=== PATIENT | male | born 1955 | race Caucasian/White ===

== ENCOUNTER 2017-01-11 12:35 | Inpatient (IN) | payer OTHER ==
[~2017-01-11] VITALS: Ht 177.8 cm; Wt 83.0 kg
[2017-01-11] MEDS ORDERED: HYDROmorphone 1 MG/ML, 1ML ONE ×3 (13:21→19:22)
[2017-01-11] MEDS ORDERED: KETOROLAC 30 MG/1 ML ONE (13:21)
[2017-01-11] MEDS ORDERED: ONDANSETRON 2MG/ML, 2ML ONE ×3 (13:21→19:56)
[2017-01-11] MEDS: HYDROmorphone 1 MG/ML, 1ML IVPush PRN ×2 (13:28→14:54)
[2017-01-11] MEDS ORDERED: KETOROLAC 30 MG/1 ML IVPush ONE (13:30)
[2017-01-11] MEDS: ONDANSETRON 2MG/ML, 2ML IVPush PRN ×2 (13:30→14:50)
[2017-01-11] MEDS ORDERED: SODIUM CHLORIDE FLUSH 10ML SYR IVF ONE (14:30)
[2017-01-11] MEDS ORDERED: TAMSULOSIN 0.4 MG CAP.ER.24H PO ONE (14:30)
[2017-01-11] MEDS ORDERED: SODIUM CHLORIDE 0.9% 1,000ML IVBOLUS ONE (14:30)
[2017-01-11] MEDS ORDERED: TAMSULOSIN 0.4 MG CAP.ER.24H ONE (14:41)
[2017-01-11] MEDS ORDERED: SODIUM CHLORIDE 0.9%, 500ML IVBOLUS ONE (15:00)
[2017-01-11] MEDS ORDERED: HYDROmorphone 1 MG/ML, 1ML IV ONE (15:00)
[2017-01-11] MEDS ORDERED: ACETAMINOPHEN 325 MG TABLET PO PRN ×2 (19:00→20:00)
[2017-01-11] MEDS ORDERED: BISACODYL 10 MG SUPP PR PRN (19:00)
[2017-01-11] MEDS ORDERED: ONDANSETRON 2MG/ML, 2ML IVPush PRN ×2 (19:00→20:00)
[2017-01-11] MEDS ORDERED: POLYETHYLENE GLYCOL 17 GM PACKET PO PRN (19:00)
[2017-01-11] MEDS: SODIUM CHLORIDE 0.9% 1,000 ML IV SCH (19:25)
[2017-01-11] MEDS ORDERED: FENTANYL PF 250 MCG/5ML ONE (19:56)
[2017-01-11] MEDS ORDERED: MIDAZOLAM 1 MG/ML, 2ML ONE (19:56)
[2017-01-11] MEDS ORDERED: PROPOFOL 10 MG/ML, 20ML ONE (19:56)
[2017-01-11] MEDS ORDERED: DEXAMETHASONE 4 MG/ML, 1ML ONE (19:56)
[2017-01-11] MEDS ORDERED: CEFAZOLIN 1,000 MG ONE (19:56)
[2017-01-11] MEDS ORDERED: HYDROmorphone 1 MG/ML, 1ML IV PRN (20:00)
[2017-01-11] MEDS ORDERED: FENTANYL PF 100 MCG/2ML IV PRN (20:00)
[2017-01-11] MEDS ORDERED: ALBUTEROL SULFATE 2.5 MG/3 ML NPPB PRN (20:00)
[2017-01-11] MEDS ORDERED: hydrALAzine 20 MG/ML, 1ML IV PRN (20:00)
[2017-01-11] MEDS ORDERED: LABETALOL 5MG/ML, 20ML IV PRN (20:00)
[2017-01-11] MEDS ORDERED: EPHEDRINE 50 MG/ML, 1ML IVPush PRN (20:00)
[2017-01-11] MEDS ORDERED: OXYcodone 5 MG/5 ML ORAL.SOL UDC PO PRN (20:00)
[2017-01-11] MEDS ORDERED: METOPROLOL 1 MG/ML, 5ML IV PRN (20:00)
[2017-01-11] MEDS ORDERED: MEPERIDINE/PF 25MG/0.5ML IVPush PRN (20:00)
[2017-01-11] MEDS ORDERED: PROMETHAZINE 25 MG/ML, 1ML IV PRN (20:00)
[2017-01-11] MEDS ORDERED: HYDROcodone/APAP 7.5-325MG/15ML UDC PO PRN (20:00)
[2017-01-11] MEDS ORDERED: MIDAZOLAM 1 MG/ML, 2ML IV PRN (20:00)
[2017-01-11] MEDS ORDERED: MEPERIDINE/PF 25MG/0.5ML ONE (21:15)
[2017-01-11 23:54] VITALS: BP 137/76
[2017-01-12] MEDS: SODIUM CHLORIDE 0.9% 1,000 ML IV SCH ×2 (01:52→11:14)
[2017-01-12 03:23] VITALS: BP 122/68
[2017-01-12 06:03] LABS: ASPARTATE AMINO TRANSFERASE 32 U/L (15-37); BLOOD UREA NITROGEN 23 mg/dL (7-18)
[2017-01-12 07:53] VITALS: BP 154/61
[2017-01-12] MEDS: morphine SULFATE 10 MG/ML, 1ML IVPush PRN ×2 (08:30→12:50)
[2017-01-12] MEDS ORDERED: SENNA/DOCUSATE TABLET PO SCH (09:00)
[2017-01-12] MEDS ORDERED: HYDR-3240 PO (12:43)
[2017-01-12 13:37] VITALS: BP 132/72
== END 2017-01-12 15:30 | disposition home or self-care (01) | DRG 694 ==
LOC: ED 16:38 → EDIP 16:39 → ED 17:17 → 4NOR 22:20 → DCLOUNGE 01-12 14:21
PROVIDERS: ADMIT Hospitalist; ATTEND Hospitalist
PROC: 0T778DZ Dilation of Left Ureter with Intraluminal Device, Via Natural or Artificial Opening Endoscopic (ICD-10-PCS; 2017-01-11)
PROC: 0TF78ZZ Fragmentation in Left Ureter, Via Natural or Artificial Opening Endoscopic (ICD-10-PCS; principal; 2017-01-11 19:00)
DX: N20.1 Calculus of ureter (principal); E44.0 Moderate protein-calorie malnutrition; R31.9 Hematuria, unspecified; Z90.49 Acquired absence of other specified parts of digestive tract; Z68.26 Body mass index [BMI] 26.0-26.9, adult; Z87.442 Personal history of urinary calculi
CPT/HCPCS: 36415; 74000; 74176; 76000; 80053; 81001; 82360; 82550; 85025; 87086; 88300; 93005; 96361; 96374; 96375; 96376; C1726; J0690; J1100; J1170; J1885; J2175; J2250; J2405; J2704; J3010; C1758; C1769; J2270; J7030; J7040